=== PATIENT | male | born 2000 | race Caucasian/White ===

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

== ENCOUNTER 2021-04-19 09:18 | Outpatient (CLI) | payer BC, SELFPAY ==
--- NOTE | 2021-04-20 17:24 | WPDHOLTEREM ---
Holter/Event Monitor Holter/Event Monitor Date of procedure: 04/19/21 Holter/Event Procedure: 24 Hr Holter Monitor Indications: Tachycardia Conclusion: 1. 24 hour holter monitor on 04/19/21. 2. Underlying rhythm is sinus rhythm. HR range 39-185 bpm; average HR 82 bpm. HR at 185 bpm was at 22:43 with some baseline artifact. 3. There are 113 premature supraventricular complexes and 14 supraventricular couplets. No supraventricular tachycardia. 4. There are 2 premature ventricular complexes. No ventricular tachycardia. 5. No sinoatrial or atrioventricular blocks. No significant pauses greater than 2 seconds. 6. No symptoms available for correlation.
== END 2021-04-19 09:19 | disposition home or self-care (01) ==
LOC: CHSCARD 09:20
PROVIDERS: PCP Nurse Practitioner Family; Visit Provider Nurse Practitioner Family
DX: R00.0 Tachycardia, unspecified (principal)
CPT/HCPCS: 93225; 93226

== ENCOUNTER 2021-11-09 14:26 | Outpatient (CLI) | payer OTHER, SELFPAY ==
[2021-11-12 12:03] LABS: RPR Screen Non-Reactive (Non-Reactive)
[2021-11-16 22:05] LABS: HSV 1 IgM Screen Negative (Negative); HSV 2 IgM Screen Negative (Negative)
== END 2021-11-09 14:27 | disposition home or self-care (01) ==
LOC: CHSLAB 14:28
PROVIDERS: PCP Nurse Practitioner Family; Visit Provider Nurse Practitioner Family
DX: Z72.51 High risk heterosexual behavior (principal)
CPT/HCPCS: 36415; 86592; 86695; 86696; 87491; 87591; 87661

== ENCOUNTER 2022-01-15 16:13 | Outpatient (CLI) | payer OTHER, SELFPAY ==
--- NOTE | ~2022-01-15 | XR_ITS ---
XR lumbar spine 2-3V DATE: 01/15/2022 16:30 INDICATION: Acute low back pain after heavy lifting today TECHNIQUE: AP, lateral, coned lateral lumbosacral views COMPARISON: None FINDINGS: Normal alignment of the lumbar spine. No fracture or bone destruction or spondylolisthesis. The included lower thoracic and lumbar pedicles are intact. Lumbar and lumbosacral interspaces are w ell preserved. Sacroiliac joints appear normal. IMPRESSION: Negative Reviewed, dictated and finalized at location B. IMPRESSION: Negative
== END 2022-01-15 16:14 | disposition home or self-care (01) ==
LOC: CHSIMG 16:15
PROVIDERS: PCP Nurse Practitioner Family; Visit Provider Nurse Practitioner Family
DX: M54.9 Dorsalgia, unspecified (principal)
CPT/HCPCS: 72100

== ENCOUNTER 2023-01-01 13:57 | Outpatient (CLI) | payer BC, SELFPAY ==
[2023-01-01 14:39] LABS: Strep Group A RT-PCR NOT DETECTED (Negative)
[2023-01-01 14:47] LABS: Influenza A QL RT-PCR Negative (Negative); Influenza B QL RT-PCR Negative (Negative); RSV RNA, RT-PCR Negative (Negative); SARS-CoV-2 RNA PCR Negative (Negative)
== END 2023-01-01 13:58 | disposition home or self-care (01) ==
PROVIDERS: PCP Nurse Practitioner Family; Visit Provider Nurse Practitioner Family
DX: J02.9 Acute pharyngitis, unspecified (principal)
CPT/HCPCS: 87637; 87651